=== PATIENT | male | born 1990 | race Caucasian/White ===

== ENCOUNTER 2019-07-12 15:46 | Emergency (ER) | payer SELFPAY ==
[~2019-07-12] VITALS: Ht 177.8 cm; Wt 118.2 kg
[2019-07-12] MEDS ORDERED: PROM25TA14 PO (16:30)
[2019-07-12] MEDS ORDERED: LOPE2TAB25 PO (16:57)
[2019-07-12] MEDS ORDERED: HYDR-3686 PO (16:57)
[2019-07-12] MEDS ORDERED: CLON-529 PO (16:57)
[2019-07-12 17:14] VITALS: BP 138/65
== END 2019-07-12 17:18 | disposition home or self-care (01) ==
LOC: ER 15:47
DX: F11.23 Opioid dependence with withdrawal (principal); R11.2 Nausea with vomiting, unspecified; R19.7 Diarrhea, unspecified; R10.9 Unspecified abdominal pain; M79.10 Myalgia, unspecified site; Z88.0 Allergy status to penicillin; Z79.899 Other long term (current) drug therapy
CPT/HCPCS: 99283